=== PATIENT | male | born 1995 | race Caucasian/White ===

== ENCOUNTER 2021-03-06 10:41 | Emergency (ER) | payer BC, OTHER ==
[2021-03-06 11:44] LABS: HEMOGLOBIN 18.1 gm/dl (14.0-17.5); RED BLOOD COUNT 5.7 M/UL (4.20-5.50); WHITE BLOOD COUNT 9.7 K/UL (4.5-11.0)
[2021-03-06 12:04] LABS: BUN/CREATININE RATIO 17 (0-10)
[2021-03-06] MEDS ORDERED: CYCLOBENZAPRINE5 MG PO (16:08)
[2021-03-06] MEDS ORDERED: IBUPROFEN800 MG PO (16:08)
== END 2021-03-06 16:15 | disposition home or self-care (01) ==
LOC: ER1 10:41
PROVIDERS: Emergency Medicine
DX: M54.5 Low back pain (principal)
CPT/HCPCS: 80053; 81001; 83605; 83690; 85025; 85652; 86140; 96374; 96375; 99284; J1885; J2270; J2405; Q9967

== ENCOUNTER → 2021-03-09 | Outpatient (CLI) | payer BC, OTHER ==
[~2021-03-09] MED LIST: CYCLOBENZAPRINE5 MG PO; IBUPROFEN800 MG PO
== END ==
LOC: KOH-I 15:15
DX: M54.9 Dorsalgia, unspecified (principal)
CPT/HCPCS: 72100